=== PATIENT | female | born 1990 | race Two or more races ===

== ENCOUNTER 2017-05-14 20:35 | Emergency (ER) | payer SELFPAY ==
[~2017-05-14] VITALS: Ht 152.4 cm; Wt 58.0 kg
[2017-05-15 00:49] VITALS: BP 127/86
== END 2017-05-15 00:51 | disposition home or self-care (01) ==
LOC: ER 20:35
DX: S60.011A Contusion of right thumb without damage to nail, initial encounter (principal); V49.9XXA Car occupant (driver) (passenger) injured in unspecified traffic accident, initial encounter; Y93.9 Activity, unspecified; Y92.410 Unspecified street and highway as the place of occurrence of the external cause
CPT/HCPCS: 73130; 99284